=== PATIENT | female | born 1940 | race Caucasian/White ===

== ENCOUNTER 2017-07-08 10:30 | Outpatient (RCR) | payer MEDICARE, MEDICAID | END 2017-07-09 | disposition home or self-care (01) | PROVIDERS: ATTEND Internal Medicine | DX: M15.9 Polyosteoarthritis, unspecified (principal) ==

== ENCOUNTER 2017-08-02 10:53 | Outpatient (RCR) | payer MEDICARE, MEDICAID | END 2017-09-06 14:50 | disposition home or self-care (01) | PROVIDERS: ATTEND Internal Medicine | DX: M15.9 Polyosteoarthritis, unspecified (principal) ==

== ENCOUNTER → 2020-12-17 | Outpatient (CLI) | payer MEDICARE, MEDICAID | LOC: CARD 14:27 | PROVIDERS: ATTEND Nurse Practitioner Family | DX: R00.2 Palpitations (principal) | CPT/HCPCS: 93005 ==

== ENCOUNTER → 2021-01-21 | Outpatient (CLI) | payer MEDICARE, MEDICAID | LOC: LABNPT 08:26 | PROVIDERS: ATTEND Internal Medicine | DX: Z20.822 Contact with and (suspected) exposure to COVID-19 (principal) | CPT/HCPCS: 87635 ==

== ENCOUNTER → 2021-04-03 | Outpatient (CLI) | payer MEDICARE, MEDICAID | LOC: SLEEP 01-23 19:21 → LAB 08:45 | PROVIDERS: ATTEND Nurse Practitioner Family | DX: G47.33 Obstructive sleep apnea (adult) (pediatric) (principal); G47.10 Hypersomnia, unspecified; I49.9 Cardiac arrhythmia, unspecified; Z20.822 Contact with and (suspected) exposure to COVID-19 | CPT/HCPCS: 87635 ==

== ENCOUNTER 2021-11-16 14:07 | Day surgery (SDC) | payer MEDICARE, MEDICAID ==
[~2021-11-16] VITALS: Ht 160 cm; Wt 63.6 kg
[2021-11-16] MEDS ORDERED: LACTATED RINGERS 1,000 ML IV STA (14:08)
[2021-11-16] MEDS ORDERED: PRAV10TA PO (14:13)
[2021-11-16] MEDS ORDERED: VIT1CAPS5 PO (14:13)
[2021-11-16] MEDS ORDERED: LIDOCAINE JELLY 2% 6 ML SYRINGE MM PRN (14:15)
[2021-11-16] MEDS ORDERED: HURRICAINE EXT TUBE (BENZOCAINE) XX PRN (14:15)
[2021-11-16 14:24] VITALS: BP 166/78
--- NOTE | 2021-11-16 15:41 | Pre-Op Note & Conscious Sedat ---
Pre-Operative Progress Note H&P Reviewed The H&P was reviewed, patient examined and no changes noted. Date H&P Reviewed: Nov 16, 2021 Time H&P Reviewed: 15:41 Conscious Sedation Pre-Proced ASA Score 2 For ASA 3 and 4: Consider anesthesia and medical clearance. Also, for patients with a history of failed moderate sedation consider anesthesia. Airway Lungs Heart ASA score ASA 1: a normal healthy patient ASA 2: a patient with a mild systemic disease (mid diabetes, controlled hypertension, obesity ASA 3: a patient with a severe systemic disease that limits activity (angina, COPD, prior Myocardial infarction) ASA 4: a patient with an incapacitating disease that is a constant threat to life (CHF, renal failure) ASA 5: a moribund patient not expected to survive 24 hrs. (ruptured aneurysm) ASA 6: a declared brain- patient whose organs are being harvested. For emergent operations, add the letter E after the classification Mallampati Classification Grade 2 Sedation Plan Analgesia, Amnesia, Plan communicated to team members, Discussed options with patient/fam, Discussed risks with patient/fam The patient is an appropriate candidate to undergo the planned procedure, sedation, and anesthesia. The patient immediately re-assessed prior to indication. RAKESH CLEMONS MD Nov 16, 2021 15:41
[2021-11-16] MEDS ORDERED: proPOfol 200 MG/20 ML (DIPRIVAN) VIAL IV ONE (15:42)
[2021-11-16 16:20] VITALS: BP 167/67
--- NOTE | 2021-11-16 16:20 | Anesthesia-General Post-Op ---
MAC Patient Condition Mental Status/LOC: Same as Preop Cardiovascular: Satisfactory Nausea/Vomiting: Absent Respiratory: Satisfactory Pain: Controlled Complications: Absent Post Op Complications Complications None Follow Up Care/Instructions Patient Instructions None needed. Anesthesiology Discharge Order Discharge Order Patient is doing well, no complaints, stable vital signs, no apparent adverse anesthesia problems. No complications reported per nursing. GAYLE MURGUIA CRNA Nov 16, 2021 16:20
[2021-11-16 16:25] VITALS: BP 129/60
[2021-11-16 16:30] VITALS: BP 127/60
[2021-11-16] MEDS ORDERED: OMEP20CA18 PO (16:36)
[2021-11-16 17:00] VITALS: BP 141/68
--- NOTE | 2021-11-17 00:59 | OPERATIVE REPORT ---
DATE OF SERVICE: 11/16/2021 EGD SUMMARY INDICATION FOR THE PROCEDURE: EGD was performed for evaluation of dysphagia. DESCRIPTION OF PROCEDURE: The patient was placed in the left lateral decubitus position. The endoscope was inserted in the oral cavity and under direct visualization, esophagus was intubated. Endoscope was passed down the esophagus through stomach and second portion of the duodenum. Careful inspection was made as the endoscope was withdrawn. FINDINGS: The posterior pharynx, arytenoid aperture, epiglottis, and true and false vocal folds were unremarkable to digital inspection. Proximal and mid esophagus were unremarkable. There is some tortuosity of the distal esophagus. There is a distal esophageal ring stricture at about 1.5 cm in size without evidence for ulceration. Just proximal to this, there did appear to be some increased tone of the lower esophagus, especially in light of underlying Diprivan-based anesthesia. A small hiatal hernia was present. The cardia and fundus were unremarkable. There is some mild antral erythema without evidence for erosion or ulceration. The pylorus, the pyloric channel, the duodenal bulb and second portion of duodenum were unremarkable. ASSESSMENT AND PLAN: Distal esophageal ring with stricturing to about 1.5 cm diameter was noted. The patient subsequently underwent balloon dilatation using the 20 mm balloon dilators. This did notably increase the circumference of the distal esophagus. Biopsies from the GE junction were obtained. There was some striation in the distal esophagus, so a biopsy was obtained and submitted for histopathology evaluation, specifically for evaluation for eosinophilic esophagitis. Advised continued liquid diet for the next 24 hours and then advancing to soft solids. I did advise proton pump inhibitor therapy for now and we will initiate omeprazole 20 mg q.a.m. daily. Advised follow up with Regina in several weeks to monitor progress. I did discuss the likelihood of recurrence as has been the case in the past with a need for repeat dilatation for onset of dysphagia in the future. Job ID: [id number] DocumentID: [id number] Dictated Date: 11/16/2021 16:31:49 Teacher Tutor Date: 11/17/2021 00:58:47 Dictated By: RAKESH CLEMONS MD [facility]
== END 2021-11-16 15:12 | disposition home or self-care (01) ==
LOC: ENDO 14:07
PROVIDERS: ATTEND Internal Medicine
DX: K21.00 Gastro-esophageal reflux disease with esophagitis, without bleeding (principal); K22.2 Esophageal obstruction; K31.89 Other diseases of stomach and duodenum; K44.9 Diaphragmatic hernia without obstruction or gangrene; E78.5 Hyperlipidemia, unspecified; Z20.822 Contact with and (suspected) exposure to COVID-19; Z79.899 Other long term (current) drug therapy
CPT/HCPCS: 87636; 88305

== ENCOUNTER 2022-01-05 05:31 | Outpatient (CLI) | payer MEDICARE, MEDICAID ==
[~2022-01-05] VITALS: Ht 162.6 cm; Wt 61.4 kg
[~2022-01-05 05:31] MED LIST: OMEP20CA18 PO; PRAV10TA PO; VIT1CAPS5 PO
[2022-01-05 14:03] LABS: HEMATOCRIT 43 % (35-52); HEMOGLOBIN 14.2 g/dL (11.5-16.0); MEAN CORPUSCULAR HEMOGLOBIN 31 pg (25-34); MEAN CORPUSCULAR HGB CONC 33 g/dL (32-36); MEAN CORPUSCULAR VOLUME 95 fL (80-99); MEAN PLATELET VOLUME 11.4 fL (9.0-12.2); PLATELET COUNT 203 10^3/uL (130-400); WHITE BLOOD COUNT 6.3 10^3/uL (4.3-11.0)
[2022-01-05 14:18] LABS: CALCIUM 9.3 MG/DL (8.5-10.1); CREATININE SERUM 0.75 MG/DL (0.60-1.30); POTASSIUM 3.9 MMOL/L (3.6-5.0)
[2022-01-05] MEDS ORDERED: OM-31CAP3 PO (14:48)
[2022-01-05] MEDS ORDERED: MV,I66.7 PO (14:48)
[2022-01-05] MEDS ORDERED: ZINC220T3 PO (14:48)
[2022-01-05] MEDS ORDERED: OMEP40CA6 PO (14:48)
[2022-01-05] MEDS ORDERED: MECL-215 PO (14:48)
[2022-01-05] MEDS ORDERED: RIFA550T PO (14:48)
[2022-01-05] MEDS ORDERED: CITA20TA9 PO (14:48)
[2022-01-05] MEDS ORDERED: PRAV80TA2 PO (14:48)
[2022-01-05] MEDS ORDERED: LORA0.5P MC (14:48)
[2022-01-05] MEDS ORDERED: CHOL500049 PO (14:48)
--- NOTE | 2022-01-05 15:33 | Diagnostic Imaging Report ---
INDICATION: Preop for left hip surgery. TIME OF EXAM: 2:18 PM. COMPARISON: No prior studies are available for comparison. FINDINGS: The heart size is normal. The pulmonary vascularity is unremarkable. The lungs are clear. No infiltrate, effusion, or pneumothorax is detected. IMPRESSION: No acute cardiopulmonary process is detected. Dictated by: Dictated on workstation # [id number]
== END 2022-01-05 14:49 ==
LOC: PREOP 05:31
PROVIDERS: ATTEND Otolaryngology Otolaryngology/Facial Plastic Surgery
DX: Z01.810 Encounter for preprocedural cardiovascular examination (principal); Z01.812 Encounter for preprocedural laboratory examination; K13.0 Diseases of lips
CPT/HCPCS: 36415; 71046; 80048; 85027; 87081; 93005

== ENCOUNTER 2022-01-07 06:20 | Day surgery (SDC) | payer MEDICARE, MEDICAID ==
[2022-01-07] VITALS (10 sets, daily range): BP systolic 93–148; BP diastolic 50–89
[~2022-01-07] VITALS: Ht 162 cm; Wt 61.4 kg
[~2022-01-07 06:20] MED LIST changes: +CHOL500049 PO; +CITA20TA9 PO; +LORA0.5P MC; +MECL-215 PO; +MV,I66.7 PO; +OM-31CAP3 PO; +OMEP40CA6 PO; +PRAV80TA2 PO; +RIFA550T PO; +ZINC220T3 PO
[2022-01-07] MEDS: LACTATED RINGERS 1,000 ML IV PRN ×2 (06:35→08:35)
--- NOTE | 2022-01-07 07:07 | Progress Note-Pre Operative ---
Pre-Operative Progress Note H&P Reviewed The H&P was reviewed, patient examined and no changes noted. Date Seen by Provider: Jan 07, 2022 Time Seen by Provider: 06:30 Date H&P Reviewed: Jan 07, 2022 Time H&P Reviewed: 06:30 Pre-Operative Diagnosis: LesftLower Lip Lesion BRIEN NAVARRO MD Jan 07, 2022 07:07
--- NOTE | 2022-01-07 07:10 | Progress Note-Post Operative ---
Post-Operative Progess Note Surgeon (s)/Leaf Stamper (s) Surgeon BRIEN NAVARRO MD Leaf Stamper n/a Pre-Operative Diagnosis LesftLower Lip Lesion Post-Operative Diagnosis same Post-Op Procedure Note Date of Procedure: Jan 07, 2022 Name of Procedure Performed: Excisoion of Left Loer Lip Leisoin with Repair Description & Findings Description and Findings: n/a Anesthesia Type get Estimated Blood Loss minimal Packing none. Specimen(s) collected/removed left lower lip lesion BRIEN NAVARRO MD Jan 07, 2022 07:10
[2022-01-07] MEDS ORDERED: ACETAMINOPHEN 325 MG TABLET PO PRN (07:15)
[2022-01-07] MEDS ORDERED: HYDROcodone/APAP 5 MG/325 MG (LORTAB) TAB PO PRN (07:15)
[2022-01-07] MEDS ORDERED: LIDOCAINE/EPI 2% 1:200,00 (XYLOCAINE) 20 ML VIAL ONE (07:42)
[2022-01-07] MEDS ORDERED: LIDOCAINE PF 2% 5 ML (XYLOCAINE) VIAL ONE (07:50)
[2022-01-07] MEDS ORDERED: fentaNYL INJ 100 MCG/2 ML AMP ONE (07:50)
[2022-01-07] MEDS ORDERED: proPOfol 200 MG/20 ML (DIPRIVAN) VIAL IV ONE (07:50)
[2022-01-07] MEDS ORDERED: ONDANSETRON 4 MG/2 ML (SDV) Z0FRAN ONE (07:50)
[2022-01-07] MEDS ORDERED: SUCCINYLCHOLINE INJ 100 MG/5 ML SYR/VIAL ONE (08:34)
[2022-01-07] MEDS ORDERED: SEVOFLURANE (ULTANE) 15 ML INHAL SOLN ONE (08:45)
[2022-01-07] MEDS ORDERED: ACHD5005 PO (08:57)
[2022-01-07] MEDS ORDERED: MEPERIDINE (DEMEROL) INJ 50 MG/ML IVP ONE (09:00)
[2022-01-07] MEDS ORDERED: morphine INJ 10 MG/ML 1ML (SYR OR VIAL) IVP ONE (09:00)
[2022-01-07] MEDS ORDERED: ONDANSETRON 4 MG/2 ML (SDV) Z0FRAN IVP PRN (09:00)
[2022-01-07] MEDS ORDERED: HYDROmorphone 2 MG/ML VIAL (DILAUDID) IV ONE (09:00)
--- NOTE | 2022-01-07 09:42 | Anesthesia-General Post-Op ---
General Patient Condition Mental Status/LOC: Same as Preop Cardiovascular: Satisfactory Nausea/Vomiting: Absent Respiratory: Satisfactory Pain: Controlled Complications: Absent Post Op Complications Complications None Follow Up Care/Instructions Patient Instructions None needed. Anesthesia/Patient Condition Patient Condition Patient is doing well, no complaints, stable vital signs, no apparent adverse anesthesia problems. No complications reported per nursing. MARTIN HOOKER CRNA Jan 07, 2022 09:42
== END 2022-01-07 11:15 | disposition home or self-care (01) ==
LOC: SDC 06:20
PROVIDERS: ATTEND Otolaryngology Otolaryngology/Facial Plastic Surgery
DX: D23.0 Other benign neoplasm of skin of lip (principal); K21.9 Gastro-esophageal reflux disease without esophagitis; I45.89 Other specified conduction disorders; Z79.899 Other long term (current) drug therapy
CPT/HCPCS: 87081; 93005

== ENCOUNTER → 2023-03-04 | Outpatient (CLI) | payer MEDICARE, MEDICAID ==
[~2023-03-04] MED LIST changes: +ACHD5005 PO
== END ==
LOC: CARD 11:32
PROVIDERS: ATTEND Internal Medicine Cardiovascular Disease
DX: I10 Essential (primary) hypertension (principal)
CPT/HCPCS: 93306